=== PATIENT | female | born 1945 | race Caucasian/White ===

== ENCOUNTER 2017-01-16 16:09 | Inpatient (IN) | payer MEDICARE, OTHER ==
[~2017-01-16] VITALS: Ht 160 cm; Wt 106.1 kg
--- NOTE | ~2017-01-16 | CN ---
Consultation Report [facility] [address] [place]. [address] NAME: AYO NORTON : 45 STATUS : ADM Lakia PAT#: [id number] AGE: 71 ADM/REG DATE : 01/16/17 MR#: [id number] REPORT SERV DATE: 01/17/17 DICTATED BY: HEAVEN VARGAS SAMUEL O. DATE: 01/17/17 REPORT STATUS : Draft TRANSCRIBED BY: MODL DATE: 01/17/17 ELECTROPHYSIOLOGY CONSULTATION. I WILL SEE THE PATIENT BY DR. CAMPOS. DATE OF CONSULTATION: REASON FOR CONSULTATION: Bradycardia. HISTORY: A 71-year-old female with no known coronary disease, but history of diabetes, aortic stenosis, hypertension, obstructive sleep apnea, stage 3 chronic kidney disease. She was admitted to the hospital for profound bradycardia. The patient was originally referred to Dr. Campos for evaluation of a cardiac murmur and bradycardia. She underwent noninvasive electrocardiographic monitoring, which revealed significant bradycardia with heart rates as low as 28 beats per minute and pauses up to 2.8 seconds in duration. This led to her admission. The patient states that she has been having ongoing bradycardia over the last several months, which has been evaluated by her primary care physician. She has not had syncope or dizziness. She has noted increased dyspnea on exertion and fatigue. She has attributed this to getting older as well as to her obesity. She has not had any chest pain. She is not on any medicines that lower her heart rate. PAST MEDICAL HISTORY: Diabetes, hypertension, hyperlipidemia, obstructive sleep apnea; she is using her CPAP appropriately, morbid obesity, chronic kidney disease, osteoarthritis. PAST SURGICAL HISTORY: Knee surgery, tonsillectomy, tubal ligation, sinus surgery, and inguinal hernia. ALLERGIES: NOTED, TO SHE HAD A PRIOR ALLERGIC REACTION TO ANESTHESIA, WHICH IS NOTED ON HER MEDICAL ALERT BRACELET. SHE ALSO STATES AN ALLERGY TO SULFA, CODEINE, AND IBUPROFEN. MEDICATIONS: Please see her MAR. Further notes notable for the cardiac medications of amlodipine 10 mg a day, aspirin 81 mg a day, chlorthalidone 25 mg a day, spironolactone 25 mg a day, valsartan 325 mg a day, hydralazine 25 mg q.8 hours. 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 She does not use any tobacco or alcohol. FAMILY HISTORY: There is no prior history of sudden cardiac , but she has had myocardial infarction in the family. REVIEW OF SYSTEMS: Negative other than mentioned above. Consultation Report [facility] [address] [place]. [address] NAME: AYO NORTON : 45 STATUS : ADM Lakia PAT#: [id number] AGE: 71 ADM/REG DATE : 01/16/17 MR#: [id number] REPORT SERV DATE: 01/17/17 DICTATED BY: HEAVEN VARGAS SAMUEL O. DATE: 01/17/17 REPORT STATUS : Draft TRANSCRIBED BY: MARY KATE DATE: 01/17/17 PHYSICAL EXAMINATION: GENERAL: Obese female, who is pleasant lying in bed, in no acute distress. VITAL SIGNS: Temperature of 98.6, pulse is 58, blood pressure of 169/70, respirations of 18, saturating 96% on room air. HEENT: Normocephalic and atraumatic. She is anicteric. There is no thyromegaly. CARDIOVASCULAR: Bradycardic, regular rhythm. There is a 2/6 systolic murmur at the right upper sternal border, which radiates into the carotids. LUNG: Rhonchi, wheezes, or rales. ABDOMEN: Obese, soft, nontender. Good bowel sounds. EXTREMITIES: There is no clubbing, cyanosis, or edema. Pulses are 2+ distally. SKIN: Warm to touch. NEURO: She is nonfocal. PSYCHIATRIC: Normal mood and affect. LABORATORY: Sodium of 141, potassium of 4.3, BUN of 21, creatinine of 1.5. White blood cell count of 9.6 with a hemoglobin of 13. Platelets of 225, INR of 1.02. TSH of 1.7. Telemetry reveals sinus bradycardia. IMPRESSION: 1. Sick sinus syndrome. There is no reversible etiology found and she has had heart rates as low as 28 with pauses of 2.8 seconds on her event monitor. I suspect that this is at least in part related to her dyspnea on exertion and fatigue. I have discussed with her options for this to include a pacemaker implantation. We discussed the technique for the procedure to and the risks and benefits. The risks include tamponade myocardial damage, bleeding, pneumothorax, allergic reaction, skin reaction, and infection. All questions were answered of the patient and at the end, she would like to proceed. We will also plan for rate responses with this and an MRI compatible device. 2. Aortic stenosis, appreciable on exam. She has obtained an echocardiogram in an attempt to get this prior to the procedure. 3. Diabetes. 4. Obstructive sleep apnea on CPAP. 5. Chronic kidney disease. 6. Hypertension. 7. Hyperlipidemia. PLAN: Plan for dual-chamber pacemaker on Thursday. Thank you very much for allowing us to participate in the care of this patient. ELLIS/MARY KATE Consultation Report [facility] [address] [place]. [address] NAME: AYO NORTON : 45 STATUS : ADM Lakia PAT#: [id number] AGE: 71 ADM/REG DATE : 01/16/17 MR#: [id number] REPORT SERV DATE: 01/17/17 DICTATED BY: HEAVEN VARGAS SAMUEL O. DATE: 01/17/17 REPORT STATUS : Draft TRANSCRIBED BY: MARY KATE DATE: 01/17/17 Rafy Vargas MD / [id number] CC: Wilber Campos III, M.D., [facility], [facility] Janki Restrepo MD
[~2017-01-16 16:09] MED LIST: CALTRA600D PO; CARDCD240 PO; FISH-EPA1000 MG PO; GLUCCHONDR PO; GLUCOV5 PO; HEMOCYTET PO; MICARDIS HCT PO; NEXIUM40 PO; TRIPLE FLE2 OR; TYLENOL ARTH650 MG PO; ULTRAM50 PO
[2017-01-16] MEDS ORDERED: NORV10 PO (17:42)
[2017-01-16] MEDS ORDERED: JANUVIA50 PO (17:42)
[2017-01-16] MEDS ORDERED: DIOVAN HCT320 MG/25 PO (17:42)
[2017-01-16] MEDS ORDERED: METAGLIP1 TA1 PO (17:42)
[2017-01-16] MEDS ORDERED: SPIRO25 PO (17:42)
[2017-01-16] MEDS ORDERED: PRILOSEC40 MG PO (17:43)
[2017-01-16] MEDS ORDERED: NEUR300 PO (17:43)
[2017-01-16] MEDS ORDERED: HALF81 PO (17:43)
[2017-01-16] MEDS ORDERED: BENTYL10 PO (17:43)
[2017-01-16] MEDS ORDERED: METHOC750B PO (17:44)
[2017-01-16] MEDS ORDERED: GLUCCHONDR PO (17:45)
[2017-01-16] MEDS ORDERED: CALTRA600D PO (17:45)
[2017-01-16 18:47] LABS: BASOPHILS 0.2 %; BASOPHILS ABSOLUTE 0.02 10/3/uL (0.0-0.16); HEMATOCRIT 40.5 % (36.0-48.0); IMMATURE GRANULOCYTES 0.6 %; IMMATURE GRANULOCYTES ABSOLUTE 0.06 10/3/uL (0.0-0.11); LYMPHOCYTES 19.3 %; LYMPHOCYTES ABSOLUTE 1.86 10/3/uL (0.67-4.30); MEAN CORPUS HGB CONC 32.1 g/dL (32.0-36.0); MEAN CORPUSCULAR HEMOGLOB 28.2 pg (26.0-34.0); MEAN CORPUSCULAR VOLUME 87.9 fL (80-100); MEAN PLATELET VOLUME 10.6 fL (9.2-13.0); MONOCYTES 6.3 %; MONOCYTES ABSOLUTE 0.61 10/3/uL (0.21-1.20); NEUTROPHILS 72.6 %; NEUTROPHILS ABSOLUTE 6.97 10/3/uL (2.02-8.40); PLATELET COUNT 225 10/3/uL (150-400); RBC DISTRIBUTION WIDTH 14.6 % (12.0-16.0); RED CELL COUNT 4.61 10/6/uL (4.0-5.6); WHITE BLOOD CELLS 9.6 10/3/uL (4.5-10.5)
[2017-01-16 18:48] LABS: MANUAL DIFF NO %
[2017-01-16 18:54] LABS: PARTIAL THROMBO TIME 24.2 SEC (22.5-37.2); PROTIME (NOT ORD) 12.9 SEC (12.0-14.5)
[2017-01-16 19:02] LABS: A/G RATIO 0.9 (0.7-1.9); BUN (BLOOD UREA NITROGEN) 18 MG/DL (6-23); CALCIUM, SERUM 9.5 MG/DL (8.5-10.4); CHLORIDE, SERUM 106 MMOL/L (96-112); CO2 (CARBON DIOXIDE) 25 MMOL/L (24-34); CREATININE 1.31 MG/DL (0.55-1.02); GFR AFRICAN AMERICAN 47 ML/MIN (>=60); GFR NON AFRICAN AMERICAN 41 ML/MIN (>=60); GLOBULIN 4.3 G/DL (2.5-4.1); GLUCOSE, SERUM 90 MG/DL (60-99); POTASSIUM, SERUM 4.1 MMOL/L (3.5-5.3); SGOT(AST) 28 U/L (5-40); SGPT(ALT) 23 U/L (5-65); SODIUM, SERUM 142 MMOL/L (135-148); TOTAL PROTEIN 8.3 G/DL (6.0-8.5)
[2017-01-16 19:03] LABS: ALKALINE PHOSPHATASE 99 U/L (45-117); TOTAL BILIRUBIN 0.8 MG/DL (0-1.2)
[2017-01-17 05:49] LABS: ASCORBIC ACID (UR NOT ORDER) NEG (NEG); BILIRUBIN, URINE NEGATIVE (NEG); KETONE, URINE NEGATIVE (NEG); LEUKOCYTE ESTERASE(NOT OR SMALL (NEG); WBC (NOT ORDERED) (RFLEX) 5 (0-5)
[2017-01-17 05:56] LABS: BUN (BLOOD UREA NITROGEN) 21 MG/DL (6-23); CALCIUM, SERUM 8.9 MG/DL (8.5-10.4); CHLORIDE, SERUM 107 MMOL/L (96-112); CO2 (CARBON DIOXIDE) 28 MMOL/L (24-34); FREE T4 1.16 NG/DL (0.76-1.46); GFR AFRICAN AMERICAN 40 ML/MIN (>=60); GFR NON AFRICAN AMERICAN 35 ML/MIN (>=60); POTASSIUM, SERUM 4.3 MMOL/L (3.5-5.3); SODIUM, SERUM 141 MMOL/L (135-148)
[2017-01-17 05:58] LABS: GLUCOSE, SERUM 176 MG/DL (60-99)
[2017-01-18 05:18] LABS: BASOPHILS 0.1 %; BASOPHILS ABSOLUTE 0.01 10/3/uL (0.0-0.16); EOSINOPHILS 1.7 %; EOSINOPHILS ABSOLUTE 0.15 10/3/uL (0.0-0.53); HEMATOCRIT 38.1 % (36.0-48.0); HEMOGLOBIN 11.8 g/dL (12.0-16.0); IMMATURE GRANULOCYTES 0.2 %; IMMATURE GRANULOCYTES ABSOLUTE 0.02 10/3/uL (0.0-0.11); LYMPHOCYTES 27.4 %; LYMPHOCYTES ABSOLUTE 2.43 10/3/uL (0.67-4.30); MEAN CORPUSCULAR HEMOGLOB 27.4 pg (26.0-34.0); MEAN CORPUSCULAR VOLUME 88.6 fL (80-100); MEAN PLATELET VOLUME 10.5 fL (9.2-13.0); MONOCYTES 9.7 %; MONOCYTES ABSOLUTE 0.86 10/3/uL (0.21-1.20); NEUTROPHILS 60.9 %; PLATELET COUNT 246 10/3/uL (150-400); RBC DISTRIBUTION WIDTH 14.6 % (12.0-16.0); WHITE BLOOD CELLS 8.9 10/3/uL (4.5-10.5)
[2017-01-18 05:23] LABS: MANUAL DIFF NO %
[2017-01-18 05:33] LABS: BUN (BLOOD UREA NITROGEN) 24 MG/DL (6-23); CALCIUM, SERUM 9.5 MG/DL (8.5-10.4); CHLORIDE, SERUM 103 MMOL/L (96-112); CO2 (CARBON DIOXIDE) 30 MMOL/L (24-34); CREATININE 1.35 MG/DL (0.55-1.02); GFR AFRICAN AMERICAN 46 ML/MIN (>=60); GFR NON AFRICAN AMERICAN 39 ML/MIN (>=60); GLUCOSE, SERUM 127 MG/DL (60-99); POTASSIUM, SERUM 4.3 MMOL/L (3.5-5.3); SODIUM, SERUM 139 MMOL/L (135-148)
[2017-01-19 05:21] LABS: BASOPHILS 0.1 %; BASOPHILS ABSOLUTE 0.01 10/3/uL (0.0-0.16); EOSINOPHILS 1.7 %; EOSINOPHILS ABSOLUTE 0.14 10/3/uL (0.0-0.53); HEMATOCRIT 35.9 % (36.0-48.0); HEMOGLOBIN 11.1 g/dL (12.0-16.0); IMMATURE GRANULOCYTES 0.2 %; IMMATURE GRANULOCYTES ABSOLUTE 0.02 10/3/uL (0.0-0.11); LYMPHOCYTES 27.1 %; LYMPHOCYTES ABSOLUTE 2.24 10/3/uL (0.67-4.30); MEAN CORPUS HGB CONC 30.9 g/dL (32.0-36.0); MEAN CORPUSCULAR HEMOGLOB 27.6 pg (26.0-34.0); MEAN CORPUSCULAR VOLUME 89.3 fL (80-100); MEAN PLATELET VOLUME 10.3 fL (9.2-13.0); MONOCYTES 9.3 %; MONOCYTES ABSOLUTE 0.77 10/3/uL (0.21-1.20); NEUTROPHILS 61.6 %; NEUTROPHILS ABSOLUTE 5.09 10/3/uL (2.02-8.40); PLATELET COUNT 217 10/3/uL (150-400); RBC DISTRIBUTION WIDTH 14.4 % (12.0-16.0); RED CELL COUNT 4.02 10/6/uL (4.0-5.6); WHITE BLOOD CELLS 8.3 10/3/uL (4.5-10.5)
[2017-01-19 05:24] LABS: MANUAL DIFF NO %
[2017-01-19 05:36] LABS: BUN (BLOOD UREA NITROGEN) 35 MG/DL (6-23); CHLORIDE, SERUM 103 MMOL/L (96-112); CO2 (CARBON DIOXIDE) 26 MMOL/L (24-34); GFR AFRICAN AMERICAN 44 ML/MIN (>=60); GFR NON AFRICAN AMERICAN 38 ML/MIN (>=60); GLUCOSE, SERUM 133 MG/DL (60-99); POTASSIUM, SERUM 4.5 MMOL/L (3.5-5.3); SODIUM, SERUM 137 MMOL/L (135-148)
[2017-01-20] MEDS ORDERED: TOPXL100 PO (09:33)
== END 2017-01-20 12:18 | disposition home or self-care (01) | DRG 243 ==
LOC: ENRESERV → ENRESERVTM → ENRESERVDT → 5NO 17:08
PROVIDERS: Internal Medicine Cardiovascular Disease; Internal Medicine Clinical Cardiac Electrophysiology
PROC: 0JH606Z Insertion of Pacemaker, Dual Chamber into Chest Subcutaneous Tissue and Fascia, Open Approach (ICD-10-PCS; principal; 2017-01-19)
PROC: 02H63JZ Insertion of Pacemaker Lead into Right Atrium, Percutaneous Approach (ICD-10-PCS; 2017-01-19)
PROC: 02HK3JZ Insertion of Pacemaker Lead into Right Ventricle, Percutaneous Approach (ICD-10-PCS; 2017-01-19)
DX: I49.5 Sick sinus syndrome (principal); Z68.41 Body mass index [BMI] 40.0-44.9, adult; N18.3 Chronic kidney disease, stage 3 (moderate); E11.9 Type 2 diabetes mellitus without complications; I35.0 Nonrheumatic aortic (valve) stenosis; I12.9 Hypertensive chronic kidney disease with stage 1 through stage 4 chronic kidney disease, or unspecified chronic kidney disease; G47.33 Obstructive sleep apnea (adult) (pediatric); E78.5 Hyperlipidemia, unspecified; E66.01 Morbid (severe) obesity due to excess calories; Z79.84 Long term (current) use of oral hypoglycemic drugs
CPT/HCPCS: 33208; 71010; 80048; 80053; 81001; 82962; 83735; 84439; 84443; 85025; 85610; 85730; 87086; 93005; A9270-GY; C1785; C1894; C1898; J2370; J3010